=== PATIENT | male | born 1990 | race Caucasian/White ===

== ENCOUNTER 2017-04-19 05:58 | Outpatient (CLI) | payer OTHER | END 2017-04-19 05:59 | disposition critical access hospital (66) | LOC: EMS 05:58 | PROVIDERS: ATTEND Surgery | DX: R41.82 Altered mental status, unspecified (principal) | CPT/HCPCS: A0425; A0429 ==

== ENCOUNTER 2017-04-19 06:20 | Emergency (ER) | payer OTHER ==
[2017-04-19 06:49] LABS: BASOPHILS % (AUTO) 0.2 %; EOSINOPHILS % (AUTO) 0.4 %; HGB - HEMOGLOBIN 14.3 g/dL (14.0-18.0); LYMPHOCYTES # (AUTO) 1.1 10^3/uL (1.5-3.5); LYMPHOCYTES % (AUTO) 8.7 %; MEAN CORPUSCULAR HEMOGLOBIN 29.6 pg (27.0-31.0); MEAN PLATELET VOLUME 8.6 fL (7.4-11.4); MONOCYTES # (AUTO) 0.9 10^3/uL (0.0-1.0); MONOCYTES % (AUTO) 7.4 %; NEUTROPHILS # (AUTO) 10.3 10^3/uL (1.5-6.6); NEUTROPHILS % (AUTO) 83.3 %; RED BLOOD COUNT 4.83 10^6/uL (4.70-6.10); UNCORRECTED WHITE BLOOD COUNT 12.4 x10^3/uL; WHITE BLOOD COUNT 12.4 x10^3/uL (4.8-10.8)
[2017-04-19] MEDS ORDERED: SODIUM CHLORIDE 0.9% 1,000 ML IV ONE (06:49)
[2017-04-19 07:01] LABS: ALBUMIN/GLOBULIN RATIO 1.9 (1.0-2.2); BILIRUBIN,TOTAL 0.6 mg/dL (0.2-1.0); BUN - BLOOD UREA NITROGEN 12 mg/dL (6-20); CALCIUM 8.9 mg/dL (8.5-10.3); CARBON DIOXIDE - CO2 23 mmol/L (21-32); CHLORIDE 98 mmol/L (101-111); CREATININE 1.3 mg/dL (0.6-1.2); GFR - MDRD 68 (>89); GLUCOSE 154 mg/dL (70-100); LIPASE 27 U/L (22-51); POTASSIUM 3.3 mmol/L (3.5-5.0); SODIUM 131 mmol/L (135-145); TOTAL PROTEIN 7.5 g/dL (6.7-8.2)
[2017-04-19 07:11] LABS: METHEMOGLOBIN VENOUS 0.4 % (0-1.5)
[2017-04-19 07:12] LABS: SALICYLATE < 6.0 mg/dL
[2017-04-19 07:13] LABS: BILIRUBIN,URINE NEGATIVE (NEGATIVE)
[2017-04-19 07:15] LABS: ACETAMINOPHEN < 10 ug/mL (10-30)
[2017-04-19 07:19] LABS: UA CHARGE (STRIP ONLY) YES; UR CULTURE IF IND NOT INDICATED
--- NOTE | 2017-04-19 07:37 | ED Physician Documentation ---
History of Present Illness - Stated complaint Stated Complaint: SZ - Chief complaint Chief Complaint: Neuro - History obtained from History obtained from: Patient - History of Present Illness Timing: Prior to arrival, Last night - Treatment prior to arrival Treatment prior to arrival: EMS BGL > 100 Review of Systems Constitutional: denies: Fever, Chills, Fatigue Eyes: denies: Loss of vision, Photophobia Ears: denies: Tinnitus/ringing Nose: denies: Rhinorrhea / runny nose, Congestion, Sinus pressure / pain Throat: denies: Oral lesions / sores, Sore throat Cardiac: denies: Chest pain / pressure, Palpitations, Pedal edema, Calf pain Respiratory: denies: Dyspnea, Cough, Wheezing GI: reports: Constipation. denies: Abdominal Pain, Nausea, Vomiting, Diarrhea, Bloody / black stool : denies: Dysuria, Frequency, Incontinent Skin: denies: Rash, Abrasion (s), Laceration (s) Musculoskeletal: denies: Neck pain, Back pain, Extremity pain, Joint pain, Extremity swelling, Joint swelling Neurologic: reports: Syncope, Seizure, LOC. denies: Generalized weakness, Focal weakness, Numbness, Difficulty speaking, Near syncope, Confused, Altered mental status, Unresponsive, Headache, Head injury Psychiatric: denies: Depressed, Hallucinations Immunocompromised: denies: Immunocompromised PD PAST MEDICAL HISTORY - Past Medical History Past Medical History: Yes Cardiovascular: Other (Pericarditis) Respiratory: None Neuro: None Endocrine/Autoimmune: None GI: None : None HEENT: None Psych: None Musculoskeletal: None Derm: None - Past Surgical History Past Surgical History: Yes HEENT: Tonsil/Adenoidectomy - Present Medications Home Medications: Ambulatory Orders Medication Instructions Recorded Confirmed No Known Home Medications [No 04/19/17 04/19/17 Known Home Medications] - Allergies Allergies/Adverse Reactions: Allergies Allergy/AdvReac Type Severity Reaction Status Date / Time No Known Drug Allergies Allergy Verified 04/19/17 06:35 - Social History Does the pt smoke?: No Smoking Status: Never smoker Does the pt drink ETOH?: Yes ETOH Use: Beer Does the pt have substance abuse?: No Substance Use and Type: Cocaine/Crack (Admitted to using cocaine last night at around 2200) - Immunizations Immunizations are current?: Yes Immunizations: TDAP current <10years - POLST Patient has POLST: No PD ED PE NORMAL - Vitals Vital signs reviewed: Yes - General General: Alert and oriented X 3, No acute distress - HEENT HEENT: Atraumatic, PERRL, EOMI, Moist mucous membranes - Neck Neck: Supple, no meningeal sign, No bony TTP - Cardiac Cardiac: No murmur, No rub. No: RRR (Tachycardic to the 120's but regular) - Respiratory Respiratory: No respiratory distress, Clear bilaterally - Abdomen Abdomen: Normal bowel sounds, Soft, Non tender, Non distended - Male Male : Deferred - Rectal Rectal: Deferred - Back Back: No CVA TTP, No spinal TTP - Derm Derm: Normal color, Warm and dry, No rash - Extremities Extremities: No deformity, No tenderness to palpate, No edema, No calf tenderness / cord - Neuro Neuro: Alert and oriented X 3, driller portable 2-12 intact, No motor deficit, No sensory deficit, Normal speech Eye Opening: Spontaneous Motor: Obeys Commands Verbal: Oriented GCS Score: 15 - Psych Psych: Normal mood PD ED PE EXPANDED - Neuro Neuro: Alert and Oriented X 3, Normal motor, Normal Sensation, Normal Speech, CNII-XII intact, PERRL, Normal speech. No: Confused, Disoriented, Weakness, Abnormal sensation, Aphasia, Dysarthria Results - Vitals Vitals: Vital Signs - 24 hr 04/19/17 04/19/17 06:22 07:30 Temperature 37.0 C Heart Rate 120 H 121 H Respiratory 16 18 Rate Blood Pressure 169/99 H 190/93 H O2 Saturation 96 97 Oxygen O2 Source Room air - EKG (time done) 0644 Rate: Rate (enter#), Tachy Rhythm: Sinus tachycardia [place]: Normal Intervals: Normal [place], QRS normal QRS: Normal Ischemia: Non specific changes Compare to prior EKG: Old EKG unavailable - Labs Labs: Laboratory Tests 04/19/17 04/19/17 04/19/17 06:44 06:44 06:44 WBC 12.4 H RBC 4.83 Hgb 14.3 Hct 42.0 MCV 87.0 MCH 29.6 MCHC 34.0 RDW 13.0 Plt Count 203 MPV 8.6 Neut # 10.3 H Lymph # 1.1 L Cascade # 0.9 Eos # 0.0 Baso # 0.0 Absolute Nucleated RBC 0.00 Nucleated RBC % 0.0 VBG Total Hgb VBG Oxyhemoglobin VBG Carboxyhemoglobin VBG Methemoglobin Sodium 131 L Potassium 3.3 L Chloride 98 L Carbon Dioxide 23 Anion Gap 10.0 BUN 12 Creatinine 1.3 H Estimated GFR (MDRD) 68 L Glucose 154 H Calcium 8.9 Total Bilirubin 0.6 AST 29 ALT 21 Alkaline Phosphatase 63 Total Protein 7.5 Albumin 4.9 Globulin 2.6 Albumin/Globulin Ratio 1.9 Lipase 27 TSH 1.49 Urine Color Urine Clarity Urine pH Ur Specific [place] Urine Protein Urine Glucose (UA) Urine Ketones Urine Occult Blood Urine Nitrite Urine Bilirubin Urine Urobilinogen Ur Leukocyte Esterase Ur Microscopic Review Urine Culture Comments Salicylates Urine Opiates Screen Ur Oxycodone Screen Urine Methadone Screen Ur Propoxyphene Screen Acetaminophen Ur Barbiturates Screen Ur Tricyclics Screen Ur Phencyclidine Scrn Ur Amphetamine Screen U Methamphetamines Scrn U Benzodiazepines Scrn Urine Cocaine Screen U Cannabinoids Screen Ethyl Alcohol < 5.0 04/19/17 04/19/17 04/19/17 06:44 06:48 07:03 WBC RBC Hgb Hct MCV MCH MCHC RDW Plt Count MPV Neut # Lymph # Cascade # Eos # Baso # Absolute Nucleated RBC Nucleated RBC % VBG Total Hgb 15.1 VBG Oxyhemoglobin 86 L VBG Carboxyhemoglobin 0.7 VBG Methemoglobin 0.4 Sodium Potassium Chloride Carbon Dioxide Anion Gap BUN Creatinine Estimated GFR (MDRD) Glucose Calcium Total Bilirubin AST ALT Alkaline Phosphatase Total Protein Albumin Globulin Albumin/Globulin Ratio Lipase TSH Urine Color YELLOW Urine Clarity CLEAR Urine pH 6.0 Ur Specific [place] 1.020 Urine Protein NEGATIVE Urine Glucose (UA) NEGATIVE Urine Ketones NEGATIVE Urine Occult Blood TRACE-INTA Urine Nitrite NEGATIVE Urine Bilirubin NEGATIVE Urine Urobilinogen 0.2 (NORMAL) Ur Leukocyte Esterase NEGATIVE Ur Microscopic Review NOT INDICATED Urine Culture Comments NOT INDICATED Salicylates < 6.0 Urine Opiates Screen NEGATIVE Ur Oxycodone Screen NEGATIVE Urine Methadone Screen NEGATIVE Ur Propoxyphene Screen NEGATIVE Acetaminophen < 10 L Ur Barbiturates Screen NEGATIVE Ur Tricyclics Screen NEGATIVE Ur Phencyclidine Scrn NEGATIVE Ur Amphetamine Screen NEGATIVE U Methamphetamines Scrn NEGATIVE U Benzodiazepines Scrn NEGATIVE Urine Cocaine Screen POSITIVE H U Cannabinoids Screen NEGATIVE Ethyl Alcohol - Rads (name of study) Head CT Radiology: Prelim report reviewed, EMP read contemporaneously, Other (IMPRESSION : 1. 6 mm Low density right parietal lobe, possibly a deep sulci. Further evaluation could be with MRI 2. No acute bleed, no acute infarct ) PD MEDICAL DECISION MAKING - ED course Complexity details: reviewed results, re-evaluated patient, considered differential (Seizure, syncope, trauma, CVA), d/w patient, d/w family ED course: AD male admitted to using cocaine last PM and passed out while at work. No signs of trauma. head CT neg for acute pathology. He was informed to followup with his medical for an MRI. His tachycardia is probably from the cocaine. Pt stable. I doubt this was a seizure. no signs of pericarditis or cardiac related symptoms to the cocaine use. Departure - Departure Disposition: 01 Home, Self Care Clinical Impression: Cocaine abuse Syncope Qualifiers: Syncope type: unspecified Qualified Code(s): R55 - Syncope and collapse Condition: Stable Instructions: ED Drug Abuse General, ED Fainting Unkn Cause Follow-Up: VIRAL Lopez [Provider Group] Comments: There was a finding on the head CT that may require a follow up with an MRI as an outpatient. Follow up with your medical for this. Recommend that you stop the use of cocaine
--- NOTE | 2017-04-19 08:59 | CT Preliminary Report ---
Exam: CT HEAD W/O IMPRESSION: 1. 6 mm Low density right parietal lobe, possibly a deep sulci. Further evaluation could be with MRI. 2. No acute bleed, no acute infarct [facility] SITE ID: [id number]
--- NOTE | 2017-04-19 09:02 | CT Report ---
EXAM: CT HEAD EXAM DATE: 04/19/2017 08:04 AM. CLINICAL HISTORY: New onset seizure. COMPARISON: None. TECHNIQUE: Multiaxial CT images were obtained from the foramen magnum to the vertex. Reformats: Coron al. IV contrast: None. In accordance with CT protocol optimization, one or more of the following dose reduction techniques w ere utilized for this exam: automated exposure control, adjustment of mA and/or KV based on patient s ize, or use of iterative reconstructive technique. FINDINGS: Parenchyma: No intraparenchymal hemorrhage . In the right parietal lobe series 3 image 17 6 mm hypod ensity.. This could be deep sulci. Extraaxial Spaces: Normal for age. No subdural or epidural collections identified. Ventricles: Normal in size and position. Sinuses and Orbits: Mucosal thickening right maxillary sinus. Imaged paranasal sinuses, orbits, and m astoids show no significant abnormality. Bones: No evidence of fracture or calvarial defect. Other: None. IMPRESSION: 1. 6 mm Low density right parietal lobe, possibly a deep sulci. Further evaluation could be with MRI. 2. No acute bleed, no acute infarct [facility] Referring Provider Line: [phone] SITE ID: [id number]
[2017-04-19 09:57] VITALS: BP 146/88
== END 2017-04-19 09:56 | disposition home or self-care (01) ==
LOC: ED 06:20
DX: R55 Syncope and collapse (principal); F14.10 Cocaine abuse, uncomplicated; R00.0 Tachycardia, unspecified
CPT/HCPCS: 70450; 80053; 80306; 80307; 80320; 80329; 81001; 81003; 82375; 83690; 84443; 85025; 87086; 93005; 96360; 99284